=== PATIENT | female | born 1950 | race Caucasian/White ===

== ENCOUNTER 2024-09-20 20:04 | Emergency (ER) | payer MEDICARE, OTHER, SELFPAY ==
[2024-09-20 20:12] VITALS: BP 156/94
--- NOTE | 2024-09-20 23:00 | ED.GENMED ---
History of Present Illness
General
Chief Complaint: Fall
Source: patient
Exam Limitations: none
Time Seen by Provider: 09/20/24 22:58
Nursing documentation reviewed up to this point in time: agreed with
History of Present Illness
History of Present Illness:
Note:
CHIEF COMPLAINT(S)
Left knee pain and facial swelling following a fall.
HISTORY OF PRESENT ILLNESS
The patient is a 74-year-old female with a history of knee replacement presenting with left knee pain and facial swelling after a fall. This occurred a few hours ago. The incident occurred when the patient caught her flip-flop on an uneven surface
while getting out of her car, resulting in a fall onto her left knee and subsequent impact to her face. She reported significant stiffness and pain in the knee but was able to ambulate. The patient has not taken any pain medication prior to
presentation and is not on anticoagulants other than aspirin. There were no reports of numbness, tingling, or headaches. The patient denies visual changes, dizziness, or nausea. The patient reports a history of blood clots post-knee surgery and
takes baby aspirin daily. The patient has a hx of factor V leiden.
PHYSICAL EXAM
General: Patient is well appearing and in no acute distress; non-toxic
Skin: Warm and dry, mild ecchymosis noted to left knee
Head: Left periorbital swelling and ecchymosis.
Eyes: Sclera non-icteric. EOMs intact, no entrapment
Cardiac: Regular rate
Peripheral Vascular: 2+ DP and PT pulses bilaterally
Pulm: Normal respiratory effort
Abdomen: No abdominal tenderness
Musculoskeletal: Full ROM of bilateral lower extremities. Mild left suprapatellar swelling. Mild left knee pain with varus stress, no ligamentous instability, negative anterior drawer
Neuro: CN II-XII intact, no focal neurologic deficits.
Psychiatric: Appropriate mood and affect.
PLAN
The patient will have her knee wrapped with an SWATHI bandage to reduce swelling and will be advised to elevate the limb as needed. She is instructed on the use of crutches if instability occurs but is currently able to ambulate. Pain management
includes acetaminophen. Follow-up with a primary care physician for further evaluation if symptoms persist or worsen.
DIFFERENTIAL DIAGNOSIS
The Differential Diagnosis includes, in no particular order and is not limited to:
1. Knee sprain
2. Meniscal tear
3. Ligamentous injury (Collateral or cruciate ligaments)
4. Patellar subluxation
5. Hemarthrosis
6. Soft tissue contusion
7. Occult fracture
8. Cervical strain
9. Concussion
10. Orbital fracture
REVIEW OF RECORDS:
No previous ER physician documentation to review, no discharge summaries in [facility]
MDM/DISPOSITION:
The patient is a 74-year-old female with a history of knee replacement presenting with left knee pain and facial swelling after a fall. This occurred a few hours ago. The incident occurred when the patient caught her flip-flop on an uneven surface
while getting out of her car, resulting in a fall onto her left knee and subsequent impact to her face. On PE she is well appearing in NAD. She does have some bruising and swelling noted to her left orbit. Her EOMs are intact. She has full range
of motion of bilateral lower extremities. She is able to ambulate without any difficulty. Her CT scan shows no acute fractures and no intracranial abnormality. Patient had x-ray of her knee which was done at urgent care which was normal. Patient
stable for discharge
Review of Systems
Review of Systems
All Other Systems: ROS reviewed and negative except as documented in HPI and ROS
Phy Exam
Physical Exam
Physical Exam:
see hpi
Course
Orders/Labs/Results
Orders:
Orders
09/20/24 20:16
CT Facial Bones W/o Iv Contras Urgent
Comment:
Reason For Exam: fall
CT Head W/o Iv Contrast Urgent
Comment:
Reason For Exam: fall
Vital Signs
Initial and Last Documented VS:
Initial Vital Signs
Temp Pulse Resp BP Pulse Ox
98.2 F 86 20 156/94 98
09/20/24 20:12 09/20/24 20:12 09/20/24 20:12 09/20/24 20:12 09/20/24 20:12
Last Documented Vital Signs
Temp Pulse Resp BP Pulse Ox
98.2 F 79 20 157/90 98
09/20/24 20:12 09/20/24 23:19 09/20/24 23:19 09/20/24 23:19 09/20/24 23:19
*Pulse Oximetry
SaO2: 98
Oxygen Mode of Delivery: Room air
*Critical Care Note
Total Time (30-74mins, 75-104mins- exclusive of procedures): Not Applicable
ED Attending Note
-
Portions of this chart may have been created with voice recognition software.� Occasional wrong word or��sound alike� substitutions may have occurred due to the inherent limitations of voice recognition software.
Discharge Plan
Departure
Patient Disposition: Home (Routine Discharge)
Date of Disposition: 09/20/24
Time of Disposition: 23:27
Patient with high blood pressure during this ER visit?: Yes
Condition: Good
Discharge Problem:
Fall, Contusion of knee, Left facial swelling
Instructions: Preventing falls in adults, Knee pain, RICE Therapy
Referrals:
scroeder [Other]
Ravindra Gerber DO [Family Provider, Family Practice]
Pedro Pratt MD [Active, Orthopedics]
Activity Restrictions/Additional Instructions:
As discussed, there is no signs of facial fracture or intracranial bruising on your CT scans.
Your x-ray does not show any evidence of fracture.
Please use Tylenol as needed for pain. You can keep your knee elevated and use swathi wrap for compression.
Interventions
Interventions:
*Risk Screen - Suicide Last Done: 09/20/24 23:03
*General Assessment Last Done: 09/20/24 20:12
*Neglect/Abuse Screening Last Done: 09/20/24 23:03
*ED- Fall Risk Assessment Last Done: 09/20/24 23:03
*ED COVID-19 Vaccine History Last Done: 09/20/24 23:07
*Nursing Disposition Last Done: 09/20/24 23:41
ED-Musculoskeletal Assessment Last Done: 09/20/24 23:06
ED- Neurological Assessment Last Done: 09/20/24 23:06
ED-Skin Assessment Last Done: 09/20/24 23:06
Discharge Date and Time
Discharge Date/Time: 09/20/24 23:42
Print Language: VINCENTIAN
[2024-09-20 23:19] VITALS: BP 157/90
== END 2024-09-20 23:42 | disposition home or self-care (01) ==
LOC: EMR 20:04
PROVIDERS: EMERGENCY PHYSICIAN Emergency Medicine; FAMILY PHYSICIAN Family Medicine
DX: S80.02XA Contusion of left knee, initial encounter (principal); R22.0 Localized swelling, mass and lump, head; W19.XXXA Unspecified fall, initial encounter; D68.51 Activated protein C resistance; Z86.718 Personal history of other venous thrombosis and embolism; Z79.82 Long term (current) use of aspirin
CPT/HCPCS: 99284; 70450; 70486